=== PATIENT | male | born 1965 | race Caucasian/White ===

== ENCOUNTER → 2016-07-03 | Outpatient (CLI) | payer OTHER ==
--- NOTE | 2016-07-03 11:59 | KCIC ---
Examination: Two views of chest. HISTORY History of pneumonia. COMPARISON None available Findings: The cardiomediastinal grossly appears unremarkable. Patchy airspace opacities identified in the right lung base, left lung base likely pneumonia or atelectasis. Moderate degenerative changes thoracic spine. Impression : Patchy airspace opacities identified in the bibasilar lungs likely pneumonia or atelectasis. Followup to resolution. Electronically signed by: Hayder Maria (Jul 03, 2016 11:58:24)
== END | disposition home or self-care (01) ==
LOC: KCIC 11:25
PROVIDERS: ATTEND Family Medicine
DX: J18.9 Pneumonia, unspecified organism (principal)
CPT/HCPCS: 71020

== ENCOUNTER 2017-06-16 04:56 | Emergency (ER) | payer OTHER ==
[2017-06-16 05:22] LABS: BASO # 0.1 x10^3/uL (0.0-0.2); BASO % 1 % (0-3); EOS % 0 % (0-3); HEMATOCRIT 44.3 % (39.0-53.0); HEMOGLOBIN 14.9 g/dL (13.0-17.5); LYMPH # 0.6 x10^3/uL (1.0-4.8); LYMPH % 8 % (24-48); MEAN CORPUSCULAR HEMOGLOBIN 30 pg (25-35); MEAN CORPUSCULAR HGB CONC 34 g/dL (31-37); MEAN CORPUSCULAR VOLUME 90 fL (79-100); MONO # 1.4 x10^3/uL (0.0-1.1); MONO % 18 % (0-9); NEUT # 5.6 x10^3uL (1.8-7.7); NEUT % 73 % (31-73); PLATELET COUNT 233 x10^3/uL (140-400); RED CELL DISTRIBUTION WIDTH 12.9 % (11.5-14.5); WHITE BLOOD COUNT 7.7 x10^3/uL (4.0-11.0)
[2017-06-16] MEDS: IV NORMAL SALINE 1000ML BAG 1,000 ML IV (05:28)
[2017-06-16 05:29] LABS: ADD MAN DIFF? YES
[2017-06-16 05:30] LABS: ANION GAP 12 (6-14); BLOOD UREA NITROGEN 11 mg/dL (8-26); BUN/CREATININE RATIO 11 (6-20); CALCIUM 8.4 mg/dL (8.5-10.1); CARBON DIOXIDE 27 mmol/L (21-32); CHLORIDE 102 mmol/L (98-107); GFR 79.1; GLUCOSE 108 mg/dL (70-99); POTASSIUM 4.3 mmol/L (3.5-5.1); SODIUM 141 mmol/L (136-145)
[2017-06-16 05:37] LABS: ALBUMIN 3.8 g/dL (3.4-5.0); ALBUMIN/GLOBULIN RATIO 1.2 (1.0-1.7); ALK PHOS 44 U/L (46-116); ALT (SGPT) 23 U/L (16-63); AST (SGOT) 17 U/L (15-37); LIPASE 161 U/L (73-393); TOTAL BILIRUBIN 0.5 mg/dL (0.2-1.0)
[2017-06-16 05:39] LABS: TROPONINI < 0.017 ng/mL (0.000-0.055)
[2017-06-16 05:47] LABS: BILIRUBIN,URINE NEGATIVE (NEG); CLARITY,URINE CLEAR; COLOR,URINE YELLOW; GLUCOSE,URINE NEGATIVE (NEG); NITRITE,URINE NEGATIVE (NEG); PROTEIN,URINE NEGATIVE (NEG-TRACE); UROBILINOGEN,URINE 0.2 mg/dL (0.2 mg/dL)
[2017-06-16 05:56] LABS: BACTERIA,URINE 0 /HPF (0-FEW); RBC,URINE 0 /HPF (0-2); WBC,URINE 0 /HPF (0-4)
[2017-06-16 06:00] LABS: INFLUENZA B PATIENT NEGATIVE (NEGATIVE); OBC FLU VALID
[2017-06-16] MEDS ORDERED: IOHEXOL 300 MG/ML 100ML VIAL. IV (06:00)
[2017-06-16] MEDS ORDERED: CONTRAST GIVEN MC (06:00)
[2017-06-16] MEDS: fentaNYL PF VIAL 100 MCG/2 ML VIAL IV (06:08)
[2017-06-16 07:14] LABS: % BANDS 5 % (0-9); % EOS 1 % (0-5); % LYMPHS 26 % (24-48); % MONOS 6 % (0-10); % SEGS 62 % (35-66); PLT ESTIMATE ADEQUATE (ADEQUATE)
[2017-06-16 10:06] LABS: INFLUENZA A PATIENT POSITIVE (NEGATIVE)
== END 2017-06-16 07:28 | disposition home or self-care (01) ==
LOC: ER 04:56
DX: R10.84 Generalized abdominal pain (principal); R53.81 Other malaise; R53.1 Weakness; J09.X2 Influenza due to identified novel influenza A virus with other respiratory manifestations
CPT/HCPCS: 36415; 74177; 80053; 81001; 83690; 84484; 85007; 85025; 87804; 87804-59; 93005; 96361; 96374; 99285-25; J3010; J7030